=== PATIENT | male | born 1980 | race American Indian/Alaskan Native ===

== ENCOUNTER 2019-03-07 10:36 | Emergency (ER) | payer OTHER ==
--- NOTE | 2019-03-07 11:38 | Emergency Department Report ---
ED Extremity Problem HPI - General Chief complaint: Extremity Injury, Lower Stated complaint: R FOOT PAIN Time Seen by Provider: 03/07/19 11:07 Source: patient Mode of arrival: Ambulatory Limitations: No Limitations - History of Present Illness Initial comments: Patient's 38-year-old -[place] male who states his feet got wet several weeks ago and tennis shoes and he's had progressively worsening pain in the bilateral feet right greater than left. He states the pain is across the bottom of all of his toes. States his redness and skin peeling. Pain is 6 out of 10 and hurts worse when he walks. He denies any fevers chills nausea vomiting diarrhea at this time. - Related Data Previous Rx's Medication Instructions Recorded Last Taken Type Acetaminophen/Codeine [Tylenol #3] 1 tab PO Q6H PRN #20 tab 12/26/14 Unknown Rx Clindamycin [Clindamycin CAP] 300 mg PO TID #60 capsule 12/26/14 Unknown Rx Cyclobenzaprine [Flexeril 10mg] 10 mg PO TID PRN #30 tablet 12/26/14 Unknown Rx Ibuprofen [Motrin] 600 mg PO Q8H PRN #40 tablet 12/26/14 Unknown Rx Loratadine [Claritin] 10 mg PO DAILY #30 tablet 12/26/14 Unknown Rx predniSONE [Deltasone] 40 mg PO QDAY #10 tab 12/26/14 Unknown Rx Chlorhexidine Gluconate 237 ml TP BID #1 liquid 06/22/18 Unknown Rx [Antiseptic Skin Cleanser] Clindamycin [Clindamycin CAP] 150 mg PO Q6HR #40 capsule 06/22/18 Unknown Rx Mupirocin [Bactroban 2%] 1 applic TP TID #1 tube 06/22/18 Unknown Rx Ibuprofen [Motrin 800 MG tab] 800 mg PO Q8HR PRN #10 tablet 03/07/19 Unknown Rx Nystatin [Nystop Powder] 1 applicatio TP BID #1 bottle 03/07/19 Unknown Rx Sulfamethoxazole/Trimethoprim 1 each PO BID #14 tablet 03/07/19 Unknown Rx [Bactrim DS TAB] Allergies Allergy/AdvReac Type Severity Reaction Status Date / Time amoxicillin Allergy Anaphylaxis Verified 03/07/19 10:38 ED Review of Systems ROS: Stated complaint: R FOOT PAIN Other details as noted in HPI Comment: All other systems reviewed and negative ED Past Medical Hx - Past Medical History Previous Medical History?: No Additional medical history: right foot infection - Surgical History Hx Cholecystectomy: Yes (2012) Additional Surgical History: "tonsils" - Social History Smoking Status: Current Every Day Smoker - Medications Home Medications: Home Medications Medication Instructions Recorded Confirmed Last Taken Type Acetaminophen/Codeine [Tylenol #3] 1 tab PO Q6H PRN #20 tab 12/26/14 Unknown Rx Clindamycin [Clindamycin CAP] 300 mg PO TID #60 capsule 12/26/14 Unknown Rx Cyclobenzaprine [Flexeril 10mg] 10 mg PO TID PRN #30 tablet 12/26/14 Unknown Rx Ibuprofen [Motrin] 600 mg PO Q8H PRN #40 tablet 12/26/14 Unknown Rx Loratadine [Claritin] 10 mg PO DAILY #30 tablet 12/26/14 Unknown Rx predniSONE [Deltasone] 40 mg PO QDAY #10 tab 12/26/14 Unknown Rx Chlorhexidine Gluconate 237 ml TP BID #1 liquid 06/22/18 Unknown Rx [Antiseptic Skin Cleanser] Clindamycin [Clindamycin CAP] 150 mg PO Q6HR #40 capsule 06/22/18 Unknown Rx Mupirocin [Bactroban 2%] 1 applic TP TID #1 tube 06/22/18 Unknown Rx Ibuprofen [Motrin 800 MG tab] 800 mg PO Q8HR PRN #10 tablet 03/07/19 Unknown Rx Nystatin [Nystop Powder] 1 applicatio TP BID #1 bottle 03/07/19 Unknown Rx Sulfamethoxazole/Trimethoprim 1 each PO BID #14 tablet 03/07/19 Unknown Rx [Bactrim DS TAB] ED Physical Exam - General Limitations: No Limitations General appearance: alert, in no apparent distress - Head Head exam: Present: atraumatic, normocephalic - Eye Eye exam: Present: normal appearance - ENT ENT exam: Present: mucous membranes moist - Neck Neck exam: Present: normal inspection - Respiratory Respiratory exam: Absent: respiratory distress - Cardiovascular Cardiovascular Exam: Present: regular rate, normal rhythm - GI/Abdominal GI/Abdominal exam: Present: soft - Rectal Rectal exam: Present: deferred - Extremities Exam Extremities exam: Present: normal inspection, other (bilateral feet on the plantar surface shows excoriation of the skin at the MCP joint there is some localized erythema and tenderness on palpation with the right foot being worse than the left. There are no evidence of any abscesses or fluctuance. Full range of motion with all of his toes although there is some pain with ranging) - Back Exam Back exam: Present: normal inspection - Neurological Exam Neurological exam: Present: alert, oriented X3 - Psychiatric Psychiatric exam: Present: normal affect, normal mood - Skin Skin exam: Present: warm, dry, intact, normal color. Absent: rash ED Course Vital Signs 03/07/19 10:42 Temperature 98.2 F Pulse Rate 82 Respiratory 18 Rate Blood Pressure 137/79 O2 Sat by Pulse 99 Oximetry ED Medical Decision Making - Medical Decision Making Patient appears to have trench foot with possible secondary bacterial infection. Patient started on nystatin powder V also given Bactrim. Patient given meds for symptomatic relief as well. Critical care attestation.: If time is entered above; I have spent that time in minutes in the direct care of this critically ill patient, excluding procedure time. ED Disposition Clinical Impression: Cellulitis of foot, Trench feet Disposition: TO HOME OR SELFCARE Is pt being admited?: No Does the pt Need Aspirin: No Condition: Stable Instructions: Antifungals (On the skin), Cellulitis (ED) Referrals: WILVER LOPEZ MD [Primary Care Provider] - 3-5 Days Time of Disposition: 11:39
[2019-03-07 12:02] VITALS: BP 118/69
== END 2019-03-07 12:01 | disposition home or self-care (01) ==
LOC: ED 10:36
DX: L03.116 Cellulitis of left lower limb (principal); L03.115 Cellulitis of right lower limb; T69.022A Immersion foot, left foot, initial encounter; T69.021A Immersion foot, right foot, initial encounter; F17.200 Nicotine dependence, unspecified, uncomplicated; Z90.89 Acquired absence of other organs; Y92.89 Other specified places as the place of occurrence of the external cause; Z88.1 Allergy status to other antibiotic agents
CPT/HCPCS: 99282

== ENCOUNTER 2021-03-21 11:09 | Emergency (ER) | payer SELFPAY | END 2021-03-21 11:32 | disposition left against medical advice (07) | LOC: ED 11:09 | DX: R11.10 Vomiting, unspecified (principal); Z53.21 Procedure and treatment not carried out due to patient leaving prior to being seen by health care provider ==

== ENCOUNTER 2021-08-06 10:54 | Emergency (ER) | payer SELFPAY ==
--- NOTE | 2021-08-06 11:55 | Emergency Department Report ---
ED ENT HPI - General Chief complaint: Earache Stated complaint: Q-TIP STUCK IN EAR Time Seen by Provider: 08/06/21 11:23 Source: patient Mode of arrival: Ambulatory Limitations: No Limitations - History of Present Illness Initial comments: The patient was evaluated in the emergency department for symptoms described in the history of present illness. He/she was evaluated in the context of the global COVID-19 pandemic, which necessitated consideration that the patient might be at risk for infection with the virus that causes COVID-19. Institutional protocols and algorithms that pertain to the evaluation of patients at risk for COVID-19 are in a state of rapid change based on information released by regulatory bodies including the CDC and federal and state organizations. These policies and algorithms were followed during the patient's care in the emergency department. Please note that these policies, procedures and recommendations changed on a rapid basis. 40-year-old -Iranian male presents to the emergency room complaining of right ear pain after dislodging a Q-tip cotton into his right ear. Patient states that happened this morning. Patient denies any drainage no headache does complain of muffled sound from the right ear. Denies any fever chills. MD complaint: ear pain, foreign body -: This morning Location: R ear Severity: moderate Severity scale (0 -10): 5 Quality: aching Consistency: constant Improves with: none Worsens with: none Context- Ear: other (Foreign object right ear) - Related Data Allergies Allergy/AdvReac Type Severity Reaction Status Date / Time amoxicillin Allergy Anaphylaxis Verified 08/06/21 11:12 ED Dental HPI - General Chief complaint: Earache Stated complaint: Q-TIP STUCK IN EAR Time Seen by Provider: 08/06/21 11:23 Source: patient Mode of arrival: Ambulatory Limitations: No Limitations - Related Data Allergies Allergy/AdvReac Type Severity Reaction Status Date / Time amoxicillin Allergy Anaphylaxis Verified 08/06/21 11:12 ED Review of Systems ROS: Stated complaint: Q-TIP STUCK IN EAR Other details as noted in HPI Comment: All other systems reviewed and negative ED Past Medical Hx - Past Medical History Additional medical history: right foot infection - Surgical History Hx Cholecystectomy: Yes (2012) Additional Surgical History: "tonsils" - Social History Smoking Status: Current Every Day Smoker ED Physical Exam - General Limitations: No Limitations General appearance: alert, in no apparent distress - Head Head exam: Present: atraumatic, normocephalic - Eye Eye exam: Present: normal appearance - Expanded ENT Exam Expanded TM/Canal exam: Foreign Body: Right TM (Reexamine able to appreciate normal examination of tympanic membrane) - Neck Neck exam: Present: normal inspection, full ROM - Respiratory Respiratory exam: Absent: respiratory distress, accessory muscle use - Cardiovascular Cardiovascular Exam: Present: regular rate - Extremities Exam Extremities exam: Present: normal inspection, full ROM - Back Exam Back exam: Present: normal inspection, full ROM - Neurological Exam Neurological exam: Present: alert, oriented X3, normal gait - Psychiatric Psychiatric exam: Present: normal affect, normal mood - Skin Skin exam: Present: warm, dry, intact, normal color. Absent: rash ED Course Vital Signs 08/06/21 10:54 Temperature 97.7 F Pulse Rate 88 Respiratory 14 Rate Blood Pressure 116/66 [Right] O2 Sat by Pulse 99 Oximetry ED Medical Decision Making - Medical Decision Making 40-year-old -Iranian male presents to the emergency room complaining of right ear pain after dislodging a Q-tip cotton into his right ear. Patient states that happened this morning. Patient denies any drainage no headache does complain of muffled sound from the right ear. Denies any fever chills. Provider Notes able to visualize Q-tip in the right ear its too far to use alligator forceps will try flushing if not successful will refer to ear nose and throat provider. Critical care attestation.: If time is entered above; I have spent that time in minutes in the direct care of this critically ill patient, excluding procedure time. ED Disposition Clinical Impression: Foreign body in right ear, initial encounter Disposition: HOME / SELF CARE / HOMELESS Is pt being admited?: No Does the pt Need Aspirin: No Condition: Stable Instructions: Ear Foreign Body, Cust-za-Neef Additional Instructions: Please do not put any foreign objects into your ear nothing smaller than your elbow. Any further concerns please follow-up with the manager research development. You can take Tylenol or ibuprofen for pain management. Referrals: JULIAN DREW MD [Referring] - 3-5 Days Forms: Work/School Release Form(ED) Time of Disposition: 12:46
[2021-08-06 12:54] VITALS: BP 112/64
== END 2021-08-06 12:53 | disposition home or self-care (01) ==
LOC: ED 10:54
DX: T16.1XXA Foreign body in right ear, initial encounter (principal); F17.200 Nicotine dependence, unspecified, uncomplicated; Z88.0 Allergy status to penicillin; X58.XXXA Exposure to other specified factors, initial encounter; Y93.89 Activity, other specified; Y92.89 Other specified places as the place of occurrence of the external cause; Y99.8 Other external cause status
CPT/HCPCS: 99282